=== PATIENT | female | born 1975 | race Caucasian/White ===

== ENCOUNTER 2023-08-11 09:08 | Outpatient (CLI) | payer OTHER, SELFPAY ==
--- NOTE | 2023-08-11 11:17 | W.ANESCHARGE ---
Anesthesia Charges Start Date/Time Anesthesia Start Date: 08/11/23 Anesthesia Start Time: 10:50 Stop Date/Time Anesthesia Stop Date: 08/11/23 Anesthesia Stop Time: 11:16
== END 2023-08-11 09:09 | disposition home or self-care (01) ==
PROVIDERS: PCP Family Medicine; Visit Provider Internal Medicine Gastroenterology
DX: Z12.11 Encounter for screening for malignant neoplasm of colon (principal)
CPT/HCPCS: 00812; 45378; J2704